=== PATIENT | female | born 1960 | race Caucasian/White ===

== ENCOUNTER → 2021-01-21 | Emergency (ER) | payer OTHER ==
[~2021-01-21] VITALS: Ht 157.5 cm; Wt 93.8 kg
[~2021-01-21] MED LIST: CHOL500045 PO; LANS15CA PO; LEVO137T2 PO; PARO20TA98 PO; TRAZ50TA66 PO; WARF-36 PO; ZOLP-413 PO
[2021-01-21 13:44] LABS: BASOPHILS % (AUTO) 1 % (0-1); EOSINOPHILS % (AUTO) 5 % (1-7); LYMPHOCYTES % (AUTO) 34 % (22-44); MEAN CORPUSCULAR HEMOGLOBIN 25.1 pg (27.0-34.8); MEAN CORPUSCULAR HGB CONC 32.6 g/dL (32.4-35.8); MEAN PLATELET VOLUME 7.9 fL (7.4-10.4); MONOCYTES % (AUTO) 9 % (2-9); NEUTROPHILS % (AUTO) 51 % (42-75); PLATELET COUNT 321 x10^3/uL (130-400); RED BLOOD COUNT 5.32 x10^6/uL (3.82-5.3); RED CELL DISTRIBUTION WIDTH 17.6 % (9.6-15.2)
[2021-01-21 13:49] LABS: ALANINE AMINOTRANSFERASE 25 U/L (12-78); ALBUMIN 3.5 g/dL (3.4-5.0); CALCIUM 8.8 mg/dL (8.5-10.1); CREATININE 0.74 mg/dL (0.55-1.02)
[2021-01-21 13:53] LABS: ALKALINE PHOSPHATASE 77 U/L (45-117); BILIRUBIN,TOTAL 0.3 mg/dL (0.2-1.0); TOTAL PROTEIN 7.6 g/dL (6.4-8.2); TROPONIN I < 0.015 ng/mL (0.000-0.045)
--- NOTE | 2021-01-21 13:53 | NUR ---
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
--- NOTE | 2021-01-21 14:00 | NUR ---
pt presents to ed with c/o possible syncopal event at work today. pt states they "fell asleep at desk". pt a&o, resps even and unlabored, vss, no trauma noted, nadn. neuro intact, all monitors attached, nsr. sergio Alfredo at bedside for inital assessment and eval.
[2021-01-21 14:14] LABS: ANION GAP 5 mmol/L (5-15); CHLORIDE 104 mmol/L (98-107)
--- NOTE | 2021-01-21 14:25 | NUR ---
TASK RN: URINE COLLECTED AND SENT TO LAB. PRIMARY RN AT BEDSIDE.
[2021-01-21 14:59] LABS: MICROSCOPIC NOT IND
--- NOTE | 2021-01-21 15:11 | NUR ---
PT resting in bed, call light in reach.
--- NOTE | 2021-01-21 15:45 | NUR ---
steady ambulation to bathroom.
[2021-01-21 15:54] LABS: INTERNATIONAL NORMALIZED RATIO 3.05 (0.93-1.1); PROTHROMBIN TIME 30.9 Seconds (9.6-11.5)
[2021-01-21 16:08] LABS: BARBITURATE SCREEN, URINE Negative (Negative); BENZODIAZEPINE SCREEN, URINE Negative (Negative); CANNABINOID SCREEN, URINE Negative (Negative); COCAINE SCREEN, URINE Negative (Negative); METHADONE SCREEN, URINE Negative (Negative); OPIATE SCREEN, URINE Negative (Negative)
[2021-01-21 16:09] LABS: AMPHETAMINE SCREEN, URINE Negative (Negative)
[2021-01-21 16:14] LABS: FREE T4 (FREE THYROXINE) 1.01 ng/dL (0.76-1.46)
[2021-01-21 16:17] VITALS: BP 116/73
--- NOTE | 2021-01-21 16:40 | NUR ---
PT RESTING IN BED
--- NOTE | 2021-01-21 17:42 | NUR ---
PT requestiong to talk to md prior to piv. md notified [facility] ambulation to [facility].
--- NOTE | 2021-01-21 18:22 | NUR ---
Dc instructions reviewed, poc discussed with sergio Alfredo
== END ==
LOC: ED 12:12 → EDIP 17:19 → UNDOADMIN 17:19
DX: R55 Syncope and collapse (principal); G93.40 Encephalopathy, unspecified; Z86.711 Personal history of pulmonary embolism
CPT/HCPCS: 36415; 70450; 71045; 80053; 80307; 80320; 81003; 83735; 84439; 84443; 84484; 85025; 85610; 93005; 99285; G0480